=== PATIENT | female | born 1950 | race Caucasian/White ===

== ENCOUNTER 2016-03-24 12:51 | Emergency (ER) | payer BC ==
[~2016-03-24] VITALS: Ht 160 cm; Wt 58.9 kg
[2016-03-24 12:58] VITALS: BP 146/90; PULSE 61; RESP 16; TEMP 98.5; O2SAT 99
[2016-03-24 13:53] LABS: BLOOD, URINE SMALL (NEG); GLUCOSE,URINE NEG (NEG); KETONE, URINE NEG (NEG); NITRITE,URINE NEG (NEG)
--- NOTE | 2016-03-24 13:57 | PD ---
HPI Chief Complaint: Complaint Time Seen by Provider: 13:57 Travel History International Travel<30 days: No Contact w/Intl Traveler<30days: No Traveled to known affect area: No History of Present Illness HPI 65-year-old female presents to the emergency Department with complaint of urinary urgency, frequency, dysuria 2 days. She was recently treated with ciprofloxacin for urinary tract infection and finished taking antibiotic 2 days ago with return of symptoms. Reports history of kidney stones. Denies hematuria. Denies vaginal discharge, odor, itch, lesions. Reports right lower back pain. Reports mild nausea without vomiting. Denies fever, chills. Denies abdominal pain. Allergies to sulfa. Primary care provider is Dr. Luigi rodríguez at home. History of GERD. No other modifying factors or associated signs and symptoms. PFSH Past Medical History ?: Not Social History Tobacco Use: No Allergies-Medications (Allergen,Severity, Reaction): Coded Allergies: Sulfa (Verified Allergy, Unknown, 03/24/16) Reported Meds & Prescriptions Reported Meds & Active Scripts Active No Active Prescriptions or Reported Medications Review of Systems Except as stated in HPI: all other systems reviewed are Neg Physical Exam Narrative GENERAL: Well-nourished, well-developed female patient, in no acute distress SKIN: Warm and dry. No rash. HEAD: Atraumatic. Normocephalic. EYES: Pupils equal and round. No scleral icterus. No injection or drainage. ENT: Mucosa pink and moist. NECK: Trachea midline. CARDIOVASCULAR: Regular rate and rhythm. No murmur appreciated. 3+ radial pulses. RESPIRATORY: No accessory muscle use. Clear to auscultation. Breath sounds equal bilaterally. GASTROINTESTINAL: Abdomen soft, non-tender, nondistended. Hepatic and splenic margins not palpable. Bowel sounds are active 4 quadrants. Bladder nontender and nondistended. MUSCULOSKELETAL: No obvious deformities. No clubbing. No cyanosis. No edema. BACK: Right CVA tenderness NEUROLOGICAL: Awake and alert. Oriented 3. No obvious cranial nerve deficits. Motor grossly within normal limits. Normal speech. Moves all extremities. 5/5 strength to all extremities. PSYCHIATRIC: Appropriate mood and affect; insight and judgment normal. Data Data Last Documented VS Vital Signs Date Time Temp Pulse Resp B/P Pulse Ox O2 Delivery O2 Flow Rate FiO2 03/24/16 12:58 98.5 61 16 146/90 99 Orders Urinalysis - C+S If Indicated (03/24/16 12:58) Ondansetron Odt (Zofran Odt) (03/24/16 14:00) Basic Metabolic Panel (Bmp) (03/24/16 14:27) Complete Blood Count With Diff (03/24/16 14:27) Ct Abd/Pel W/O Iv Contrast (03/24/16 14:27) Iv Access Insert/Monitor (03/24/16 14:27) Labs Laboratory Tests Test 03/24/16 03/24/16 13:06 14:40 Urine Collection Type CLEAN CATCH Urine Color STRAW Urine Turbidity CLEAR Urine pH 6.0 Urine Specific Brandon 1.007 Urine Protein NEG mg/dL Urine Glucose (UA) NEG mg/dL Urine Ketones NEG mg/dL Urine Occult Blood SMALL Urine Nitrite NEG Urine Bilirubin NEG Urine Leukocyte Esterase NEG Urine RBC 4-9 /hpf Urine Squamous Epithelial 0-5 /hpf Cells Urine Amorphous Sediment FEW Microscopic Urinalysis Comment CULT NOT INDICATED Urine Collection Time 1306 White Blood Count 5.7 TH/MM3 Red Blood Count 4.81 MIL/MM3 Hemoglobin 14.5 GM/DL Hematocrit 42.7 % Mean Corpuscular Volume 88.8 FL Mean Corpuscular Hemoglobin 30.0 PG Mean Corpuscular Hemoglobin 33.8 % Concent Red Cell Distribution Width 12.6 % Platelet Count 251 TH/MM3 Mean Platelet Volume 7.1 FL Neutrophils (%) (Auto) 68.5 % Lymphocytes (%) (Auto) 21.6 % Monocytes (%) (Auto) 6.6 % Eosinophils (%) (Auto) 2.1 % Basophils (%) (Auto) 1.2 % Neutrophils # (Auto) 3.8 TH/MM3 Lymphocytes # (Auto) 1.2 TH/MM3 Monocytes # (Auto) 0.4 TH/MM3 Eosinophils # (Auto) 0.1 TH/MM3 Basophils # (Auto) 0.1 TH/MM3 CBC Comment DIFF FINAL Differential Comment Sodium Level 142 MEQ/L Potassium Level 4.0 MEQ/L Chloride Level 107 MEQ/L Carbon Dioxide Level 24.9 MEQ/L Anion Gap 10 MEQ/L Blood Urea Nitrogen 13 MG/DL Creatinine 0.65 MG/DL Estimat Glomerular Filtration 92 ML/MIN Rate Random Glucose 97 MG/DL Calcium Level 8.9 MG/DL MDM Medical Decision Making Medical Screen Exam Complete: Yes Emergency Medical Condition: Yes Medical Record Reviewed: Yes Differential Diagnosis Cystitis, urinary tract infection, pyelonephritis, kidney stones Narrative Course 65-year-old female with urinary frequency, urgency, dysuria. She was treated previously for urinary tract infection and finished ciprofloxacin 2 days ago with return of symptoms. Does have history of kidney stones. Physical exam positive for right CVA tenderness. Patient is afebrile and she denies fever, chills. Reports nausea without vomiting. Denies abdominal pain. Urinalysis ordered. 1420: Urinalysis without signs of infection; with occult blood and urine RBC. I spoke with Dr. Ivy, my attending physician, and she agreed labs and CT abdomen would be of benefit. CBC, BMP, CT abdomen/pelvis ordered. 1504: CBC unremarkable. BMP unremarkable. 1517: CT abdomen/pelvis unremarkable and No renal stones identified. After Biju, my attending physician, on the patient labs and radiological findings and she recommended the patient to follow up outpatient. The patient denies any risk of STDs. Inserted patient to follow up with primary care and urology as needed outpatient. Verbalized understanding and agreement. Patient is medically cleared and stable for discharge. Discussed reasons to return to the emergency department. Instructed patient to follow up with primary care provider. Patient agrees with treatment plan. The patients vital signs are stable and the patient is stable for outpatient follow-up and treatment. Patient discharged home, stable and in no acute distress. Diagnosis Primary Impression: Dysuria Referrals: Primary Care Physician Urologist Patient Instructions: Dysuria (ED), General Instructions Additional Instructions: Tylenol or ibuprofen instructed and as needed for pain Drink plenty of fluids to prevent dehydration Follow-up with primary care provider Follow-up with urology Return to the emergency department immediately with worsening of symptoms Med/Other Pt SpecificInfo: No Change to Meds, No Meds Exist/No RX given Scripts No Active Prescriptions or Reported Meds Disposition: DISCHARGE HOME Condition: Stable Rosa Maria Ryan Mar 24, 2016 13:57
[2016-03-24] MEDS ORDERED: ONDANSETRON ODT 4 MG TAB PO ONE (14:00)
[2016-03-24 14:03] LABS: METHOD OF COLLECTION CLEAN CATCH; URINE COLOR STRAW (YELLW/STRAW)
[2016-03-24 14:04] LABS: COMMENT (UR) CULT NOT INDICATED; CULTURE IF INDICATED CULT NOT INDICATED; SQUAMOUS EPITHELIAL CELL URINE 0-5 /hpf (0-5)
[2016-03-24 14:45] LABS: AUTOMATED NEUTROPHIL # 3.8 TH/MM3 (1.8-7.7); BASOPHIL # 0.1 TH/MM3 (0-0.2); BASOPHIL % 1.2 % (0.0-2.0); EOSINOPHIL # 0.1 TH/MM3 (0-0.4); EOSINOPHIL % 2.1 % (0.0-4.0); HEMATOCRIT 42.7 % (35.0-46.0); HEMO FLAGS DIFF FINAL; LYMPH % 21.6 % (9.0-44.0); LYMPHOCYTE # 1.2 TH/MM3 (1.0-4.8); MEAN CELL VOLUME 88.8 FL (80.0-100.0); MEAN CORPUSCULAR HGB CONC 33.8 % (32.0-36.0); MONO % 6.6 % (0.0-8.0); NEUT % 68.5 % (16.0-70.0); PLATELET COUNT 251 TH/MM3 (150-450); RED BLOOD COUNT 4.81 MIL/MM3 (4.00-5.30); RED CELL DISTRIBUTION WIDTH 12.6 % (11.6-17.2); WHITE BLOOD COUNT 5.7 TH/MM3 (4.0-11.0)
[2016-03-24 14:58] LABS: BICARBONATE 24.9 MEQ/L (21.0-32.0)
--- NOTE | 2016-03-24 15:14 | RADHPO ---
EXAM DATE/TIME: 03/24/2016 14:42 [facility] COMPARISON: No previous studies available for comparison. INDICATIONS : Urinary frequency and urgency. ORAL CONTRAST: No oral contrast ingested. RADIATION DOSE: 8.47 CTDIvol (mGy) MEDICAL HISTORY : Portal vein aneurysm. SURGICAL HISTORY : Cholecystectomy. Hysterectomy. ENCOUNTER: Initial ACUITY: 3 days PAIN SCALE: 3/10 LOCATION: abdomen/pelvis TECHNIQUE: Volumetric scanning of the abdomen and pelvis was performed. Using automated exposure control and ad justment of the mA and/or kV according to patient size, radiation dose was kept as low as reasonably achievable to obtain optimal diagnostic quality images. FINDINGS: Right kidney/ureter: The right kidney is normal in size. The ureter is followed throughout its course. It is normal in bull iber. No stones are seen along the course of the right ureter. Left kidney/ureter: The left kidney is normal in size. No stones are seen. The left ureter is followed throughout its cou rse. It is unremarkable in appearance. Bladder: The bladder is normal in size. No stones are seen within the bladder. CT source data: The limited portion of lung base visualized is clear. The portions of liver visualized are unremarkab le. The spleen, pancreas and adrenal glands are unremarkable in appearance by CT. The abdominal aorta is normal in caliber. There is no retroperitoneal lymphadenopathy. The visualized loops of small and large bowel are unremarkable. There is no free fluid within the pelvis. No iliac or inguinal adenopa thy is present. The visualized bony structures demonstrate mild degenerative changes but are otherwis e intact. CONCLUSION: 1. No renal stones identified. Estevan Ramos MD on March 24, 2016 at 15:09 Board Certified Radiologist. This report was verified electronically.
[2016-03-24 15:35] VITALS: BP 139/84
== END 2016-03-24 15:36 | disposition home or self-care (01) ==
LOC: PHED 12:51 → PHEFT 15:36
DX: R30.0 Dysuria (principal); R11.0 Nausea; M54.5 Low back pain; K21.9 Gastro-esophageal reflux disease without esophagitis; Z87.442 Personal history of urinary calculi
CPT/HCPCS: 74176; 80048; 81001; 85025